=== PATIENT | female | born 1980 | race American Indian/Alaskan Native ===

== ENCOUNTER → 2018-02-14 | Emergency (ER) | payer OTHER ==
[~2018-02-14] VITALS: Ht 160 cm; Wt 79.4 kg
[~2018-02-14] MED LIST: ABILIFY5 MG; ACYCLOVIR400 MG PO; BACLOFEN10 MG PO; BACTRIM DS TAB1 EACH PO; CEFTRIAXONE1 G2 IM; CEPHALEXIN500 MG PO; CRANBERRY250 MG PO; DIAZEPAM2 MG PO; ESTRADIOL1 EAC7 TD; HYDROCODON-ACE1 EA11 PO; HYDROCODON-ACE1 EAC3 PO; IBUPROFEN600 MG PO; IBUPROFEN800 MG PO; KEFLEX500 MG PO; LEVAQUIN500 MG PO; MOTRIN IB200 MG PO; NORCO 5-325 TA1 EACH PO; OXYCODONE-ACET1 EAC3 PO; PENICILLIN V P250 MG PO; PERCOCET 10-321 EACH PO; PERCOCET 5-3251 EACH PO; PERCOCET 7.5-31 EACH PO; TYLENOL325 MG PO; VIVELLE-DOT1 EAC1 TD
--- OUTSIDE RECORDS SUMMARY | ~2018-02-14 | XMS | Clinical Summary ---
Demographics + + + | Address | [address] | | | [place] [address] | + + + | Home Phone | | + + + | Preferred Language | Unknown | + + + | Marital Status | Unknown | + + + | Gnosticist Affiliation | Unknown | + + + | Race | Unknown | + + + | Ethnic Group | Unknown | + + + Author + + + | Author | [facility] | | | and [place] | + + + | Organization | [facility] | | | [...] Providers + +------+ + | Care Medical Claims Examiner Name | Role | Phone | + +------+ + | Johnathon Diaz PA-C | PP | | + +------+ + Allergies Not on File Current Medications Not on file Active Problems Not on file Social History + +-------+ +--------+------+ | Tobacco Use | Types | Packs/Day | Years | Date | | | | | Used | | + +-------+ +--------+------+ | Never Assessed | | | | | + +-------+ +--------+------+ + + + | Sex Assigned at | Date Recorded | | | | + + + | Not on file | | + + + Plan of Treatment + + + + + | Health Maintenance | Due Date | Last Done | Comments | + + + + + | Vaccine: | | | | | Dtap/Tdap/Td (1 - | 9 | | | | Tdap) | | | | + + + + + | CERVICAL CANCER | | | | | SCREENING (PAP EVERY | 1 | | | | 3 YEARS 21-64 ) | | | | + + + + + | Vaccine: Influenza | | | | | (Season Ended) | 8 | | | + + + + + Results Not on filefrom Last 3 Months Insurance + +--------+ +--------+-------+---------+ | Payer | Benefi | Subscriber | Type | Phone | Address | | | t Plan | ID | | | | | | / | | | | | | | Group | | | | | + +--------+ +--------+-------+---------+ | [facility] | IHS | [id number] | Indemn | | | | SERVICE | YELLOW | x | ity | | | | | [place] | | | | | + +--------+ +--------+-------+---------+ + +--------+ +--------+ + + | Guarantor Name | Accoun | Relation to | Date | Phone | Billing Address | | | t Type | Patient | of | | | | | | | | | | + +--------+ +--------+ + + | CHRISTIANO MUNOZ | Person | Self | [birth year] | Home: | [address] | | | [place] | | 1980 | [phone] | [place] | | | [place] | | | 1972 | [phone] | + +--------+ +--------+ + +"
--- OUTSIDE RECORDS SUMMARY | ~2018-02-14 | XMS | Clinical Summary ---
Demographics + + + | Address | [address] | | | [place] [address] | + + + | Home Phone | | + + + | Preferred Language | Unknown | + + + | Marital Status | Single | + + + | Alevism Affiliation | 1041 | + + + | Race | Unknown | + + + | Ethnic Group | Unknown | + + + Author + + + | Author | [facility] | + + + | Organization | [facility] | + + + | Address | [...] + + +---------+ + | Jerry Riggins ECON | Unknown | | + + +---------+ + Care Team Providers + +------+ + | Care Hoop Maker Name | Role | Phone | + [...] | | | | Screening (Pap) | 1 | | | + + + + [...] +------+-------+ + | MEDICAID | [place] | xxxxxxxx | | | [address] | | | N | | | | [place], [place] | | | [place] | | | | [address] | | | 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
--- OUTSIDE RECORDS SUMMARY | ~2018-02-14 | XMS | Clinical Summary ---
Demographics + + + | Address | [address] | | | [place] [address] | + + + | Home Phone | | + + + | Preferred Language | Unknown | + + + | Marital Status | Unknown | + + + | Rastafarian Affiliation | Unknown | + + + | Race | Unknown | + + + | Ethnic Group | Unknown | + + + Author + + + | Author | [facility] | | | and [place] | + + + | Organization | [facility] | | [...] Team Providers + +------+ + | Care Concrete Pouring Supervisor Name | Role | Phone | + [...] | | | + +--------+ +--------+-------+---------+ | [facility] | IHS | [id number] | Indemn [...] | [place] | | | 1972 | [phone] | + +--------+ +--------+ + +"
--- OUTSIDE RECORDS SUMMARY | ~2018-02-14 | XMS | Clinical Summary ---
Demographics + + + | Address | [address] | | | [place] [address] | + + + | Home Phone | | + + + | Preferred Language | Unknown | + + + | Marital Status | Single | + + + | Yarsani Affiliation | 1041 | + + + | Race | Unknown | + + + | Ethnic Group | Unknown | + + + Author + + + | Author | [facility] | + + + | Organization | [facility] | + + + | [...] Team Providers + +------+ + | Care Business Control Manager Name | Role | Phone | + [...] | | [place] | | | | [phone] | | | SHOEMAKING CUTTER | | | | | + +--------+ +------+-------+ + | /[facility] | YELLOW | [phone] | | [...] | | | | | | | [phone] | | | | | | +- | | | | | | | 2031 | | + +--------+ +--------+ + +
== END ==
LOC: ED 18:18
DX: R51 Headache (principal); I10 Essential (primary) hypertension; Z87.891 Personal history of nicotine dependence
CPT/HCPCS: 96374; 96375; 99282; J1200; J1885; J2765; J7030

== ENCOUNTER 2019-08-25 04:25 | Emergency (ER) | payer OTHER ==
[~2019-08-25] VITALS: Ht 160 cm; Wt 79.4 kg
--- OUTSIDE RECORDS SUMMARY | ~2019-08-25 | XMS | Clinical Summary ---
Demographics + + + | Address | [address] | | | [place] [address] | + + + | Home Phone | | + + + | Preferred Language | Unknown | + + + | Marital Status | Unknown | + + + | Confucianism Affiliation | Unknown | + + + | Race | Unknown | + + + | Ethnic Group | Unknown | + + + Author + + + | Author | [facility] | | | and [place] | + + + | Organization | [facility] | | | and [place] | + + + | Address | Unknown | + + + | Phone | Unavailable | + + + Support + + +---------+ + | Name | Relationship | Address | Phone | + + +---------+ + | Justin Paul | ECON | Unknown | | + + +---------+ + Care Team Providers + +------+ + | Care Product Design Specialist Name | Role | Phone | + +------+ + | Johnathon Diaz PA-C | PCP | | + +------+ + Allergies + + + + + + | Active Allergy | Reactions | Severity | Noted | Comments | | | | | Date | | + + + + + + | Adhesive & Tape | Rash | Medium | 09/28/20 | | | | | | 16 | | + + + + + + Medications + + + +---------+------+------+-------+ | Medication | Sig | Dispensed | Refills | Star | End | Statu | | | | | | t | Date | s | | | | | | Date | | | + + + +---------+------+------+-------+ | acetaminophen | Take 325 mg by mouth | | 0 | 11/2 | | Activ | | (TYLENOL) 325 mg | every 6 (six) hours | | | 8/20 | | e | | tablet | as needed for Pain | | | 16 | | | | | (takes every other | | | | | | | | day for migranes). | | | | | | + + + +---------+------+------+-------+ Active Problems + + + | Problem | Noted Date | + + + | Recurrent UTI | 04/29/2017 | + + + | Hypokalemia | 09/29/2016 | + + + | Flank pain, acute | 09/28/2016 | + + + | Acute pyelonephritis without lesion of renal medullary necrosis | 09/28/2016 | + + + Family History + + +------+ + | Medical History | Relation | Name | Comments | + + +------+ + | Alcohol abuse | Father | | | + + +------+ + | Diabetes, NIDDM | Father | | | + + +------+ + | High cholesterol | Father | | | + + +------+ + | Cancer | Maternal | | | | | Grandmoth | | | | | er | | | + + +------+ + | Coronary artery | Maternal | | | | disease | Grandmoth | | | | | er | | | + + +------+ + | Alcohol abuse | Mother | | | + + +------+ + + +------+--------+ + | Relation | Name | Status | Comments | + +------+--------+ + | Father | | | | + +------+--------+ + | Maternal Grandmother | | | | + +------+--------+ + | Mother | | | | + +------+--------+ + Social History + +-------+ +--------+------+ | Tobacco Use | Types | Packs/Day | Years | Date | | | | | Used | | + +-------+ +--------+------+ | Former Smoker | | 0.25 | | | + +-------+ +--------+------+ + + + | Sex Assigned at | Date Recorded | | | | + + + | Not on file | | + + + + + + + | Job Start Date | Occupation | Industry | + + + + | Not on file | Not on file | Not on file | + + + + + + + + | Travel History | Travel Start | Travel End | + + + + + + | No recent travel history available. | + + Last Filed Vital Signs + + + + | Vital Sign | Reading | Time Taken | + + + + | Blood Pressure | 156/114 | 10/22/2016 1445 PST | + + + + | Pulse | 98 | 05/20/2017 1420 PDT | + + + + | Temperature | 36.9 C (98.4 F) | 10/22/20161444 PST | + + + + | Respiratory Rate | 17 | 10/22/20165 PST | + + + + | Oxygen Saturation | - | - | + + + + | Inhaled Oxygen | - | - | | Concentration | | | + + + + | Weight | 66 kg (145 lb 8 oz) | 05/20/20171419 PDT | + + + + | Height | 160 cm (5' 3") | 05/20/20171419 PDT | + + + + | Body Mass Index | 25.77 | 05/20/20171419 PDT | + + + + Plan of Treatment + + + + + | Health Maintenance | Due Date | Last Done | Comments | + + + + + | Vaccine: | | | | | Dtap/Tdap/Td (1 - | 9 | | | | Tdap) | | | | + + + + + | Cervical Cancer | | | | | Screening (Pap) | 0 | | | + + + + + | Vaccine: Influenza | | | | | (#1) | 9 | | | + + + + + Results Not on filefrom Last 3 Months Insurance + +--------+ +--------+-------+---------+--------+ | Payer | Benefi | Subscriber | Effect | Phone | Address | Type | | | t Plan | ID | angeline | | | | | | / | | Dates | | | | | | Group | | | | | | + +--------+ +--------+-------+---------+--------+ | [facility] | IHS | [phone] | | | | Indemn | | SERVICE | YELLOW | 0 | [phone] | | | ity | | | [place] | | esent | | | | + +--------+ +--------+-------+---------+--------+ + +--------+ +--------+ + + | Guarantor Name | Accoun | Relation to | Date | Phone | Billing Address | | | t Type | Patient | of | | | | | | | | | | + +--------+ +--------+ + + | Karen Munoz | Person | Self | [birth year] | | [address] | | | al/Yann | | 1980 | [phone] | [place] | | | [place] | | | [address] (Home) | [phone] | + +--------+ +--------+ + + Advance Directives Patient has advance care planning documents on file. For more information, please contact:[facility] [place] [address]
--- OUTSIDE RECORDS SUMMARY | ~2019-08-25 | XMS | Clinical Summary ---
Demographics + + + | Address | [address] | | | [place] [address] | + + + | Home Phone | | + + + | Preferred Language | Unknown | + + + | Marital Status | Unknown | + + + | Buddhist Affiliation | Unknown | + + + | Race | Unknown | + + + | Ethnic Group | Unknown | + + + Author + + + | Author | [facility] | | | and [place] | + + + | Organization | [facility] | | | and [...] Team Providers + +------+ + | Care Medical Receptionist Biller Name | Role | Phone | + [...] | | | + +--------+ +--------+-------+---------+--------+ | [facility] | IHS | [phone] | | [...] [phone] | [place] | | | ninaf | | | 2 (Home) | [phone] | + +--------+ +--------+ + + Advance Directives Patient has advance care planning documents on file. For more information, please contact:[facility] [place] [address]
--- OUTSIDE RECORDS SUMMARY | ~2019-08-25 | XMS | Clinical Summary ---
Demographics + + + | Address | [address] | | | [place] [address] | + + + | Home Phone | | + + + | Preferred Language | Unknown | + + + | Marital Status | Single | + + + | Shinto Affiliation | 1041 | + + + | Race | Unknown | + + + | Ethnic Group | Unknown | + + + Author + + + | Author | [facility] (Historical as of | | | 06-17-19) | + + + | Organization | [facility] (Historical as of | | | 06-17-19) | + + + | Address | Unknown | + + + | Phone | Unavailable | + + + Support + + +---------+ + | Name | Relationship | Address | Phone | + + +---------+ + | Charles Paul | ECON | Unknown | | + + +---------+ + | Erika Worrell | ECON | Unknown | | + + +---------+ + | Jerry Riggins | ECON | Unknown | | + + +---------+ + Care Team Providers + +------+ + | Care Cigar Packer And Sorter Name | Role | Phone | + +------+ + | Johnathon Diaz | PP | | + +------+ + Allergies + + + + + + | Active Allergy | Reactions | Severity | Noted | Comments | | | | | Date | | + + + + + + | Adhesive Tape | Rash | Medium | 09/28/20 | | | | | | 16 | | + + + + + + Current Medications + + +-------+---------+------+------+-------+ | Prescription | Sig. | Disp. | Refills | Star | End | Statu | | | | | | t | Date | s | | | | | | Date | | | + + +-------+---------+------+------+-------+ | acetaminophen | Take 325 mg by mouth | | | | | Activ | | (TYLENOL) 325 MG | every 6 (six) hours | | | | | e | | tablet | as needed for Pain | | | | | | | | (takes every other | | | | | | | | day for migranes). | | | | | | + + +-------+---------+------+------+-------+ + + +-------+ +------+------+-------+ | Hospital, Clinic, or | Ordered | Route | Frequency | Star | End | Statu | | Other Facility | Dose | | | t | Date | s | | Administered | | | | Date | | | | Medication | | | | | | | + + +-------+ +------+------+-------+ | lidocaine | | TP | Once | 07/2 | | Activ | | (XYLOCAINE) 2 % | | | | 0/20 | | e | | gelIndications: | | | | 17 | | | | Recurrent UTI | | | | | | | + + +-------+ +------+------+-------+ | sodium chloride | 500 mL | IR | Once | 07/2 | | Activ | | (IR) 0.9 % | | | | 0/20 | | e | | irrigation 500 | | | | 17 | | | | mLIndications: | | | | | | | | Recurrent UTI | | | | | | | + + +-------+ +------+------+-------+ Active Problems + + + | Problem [...] | | + + +------+ + | Diabetes type II | Father | | | + + +------+ + | High cholesterol | Father | | | + + +------+ + | Cancer | Maternal | | | | | Grandmoth | | | | | er | | | + + +------+ + | Coronary art dis | Maternal | | | | | [...] + +------+--------+ + Social History + +-------+ +--------+ + | Tobacco Use | Types | Packs/Day | Years | Date | | | | | Used | | + +-------+ +--------+ + | Former Smoker | | 0.25 | 2 | Quit: 08/28/2016 | + +-------+ +--------+ + + +---+---+---+ | Smokeless Tobacco: | | | | | Never Used | | | | + +---+---+---+ + + | Tobacco Cessation: Counseling Given: Yes | + + + + +---------+ + | Alcohol Use | Drinks/We | oz/Week | Comments | | | ek | | | + + +---------+ + | No | | | use to drink 4 drinks per day quit Oct 31 | + + +---------+ + + + + | Sex Assigned at | Date Recorded | | | | + + + | Not on file | | + + + Last Filed Vital Signs + + + + | Vital Sign | Reading | Time Taken | + + + + | Blood Pressure | 156/114 | 10/22/2016 2:41 PM PST | + + + + | Pulse | 98 | 05/20/2017 2:19 PM PDT | + + + + | Temperature | 36.9 C (98.4 F) | 10/22/2016 2:41 PM PST | + + + + | Respiratory Rate | 17 | 10/22/2016 2:41 PM PST | + + + + | Oxygen Saturation | 100% | 05/20/2017 2:19 PM PDT | + + + + | Inhaled Oxygen | - | - | | Concentration | | | + + + + | Weight | 66 kg (145 lb 8 oz) | 05/20/2017 2:19 PM PDT | + + + + | Height | 160 cm (5' 3") | 05/20/2017 2:19 PM PDT | + + + + | Body Mass Index | 25.77 | 05/20/2017 2:19 PM PDT | + + + + Plan [...] filefrom Last 3 Months Insurance + +--------+ +------+-------+ + | Payer | Benefi | Subscriber | Type | Phone | Address | | | t Plan | ID | | | | | | / | | | | | | | Group | | | | | + +--------+ +------+-------+ + | MEDICAID | [place] | [id number] | | | [address] | | | N | | | | [place], [place] | | | [place] | | | | [phone] | | | 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
--- OUTSIDE RECORDS SUMMARY | ~2019-08-25 | XMS | Clinical Summary ---
Demographics + + + | Address | [address] | | | [place] [address] | + + + | Home Phone | | + + + | Preferred Language | Unknown | + + + | Marital Status | Single | + + + | Pentecostalism Affiliation | 1041 | + + + | Race | Unknown | + + + | Ethnic Group | Unknown | + + + Author + + + | Author | [facility] (Historical as of | | | 06-17-19) | + + + | Organization | 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
[2019-08-25] MEDS ORDERED: ALLEGRA ALLERGY60 MG PO (04:38)
== END 2019-08-25 07:54 | disposition home or self-care (01) ==
LOC: ED 04:25
DX: R10.31 Right lower quadrant pain (principal); I10 Essential (primary) hypertension; Z87.891 Personal history of nicotine dependence; Z79.899 Other long term (current) drug therapy
CPT/HCPCS: 74177; 80053; 81001; 83690; 84703; 85025; 99284-25; J1885; J2405; J7030; Q9967

== ENCOUNTER 2021-01-11 10:05 | Emergency (ER) | payer OTHER ==
[~2021-01-11] VITALS: Ht 160 cm; Wt 76.6 kg
[~2021-01-11 10:05] MED LIST changes: +ALLEGRA ALLERGY60 MG PO
[2021-01-11] MEDS ORDERED: FLONASE ALLERG9.9 ML NAS (10:51)
[2021-01-11] MEDS ORDERED: AMOXICILLIN500 MG PO (10:51)
== END 2021-01-11 11:06 | disposition home or self-care (01) ==
LOC: ED 10:05
DX: J32.9 Chronic sinusitis, unspecified (principal); I10 Essential (primary) hypertension; Z87.891 Personal history of nicotine dependence
CPT/HCPCS: 99283

== ENCOUNTER 2022-12-10 12:19 | Emergency (ER) | payer OTHER ==
[~2022-12-10] VITALS: Ht 160 cm; Wt 82.7 kg
[~2022-12-10 12:19] MED LIST changes: +AMOXICILLIN500 MG PO; +FLONASE ALLERG9.9 ML NAS
[2022-12-10] MEDS ORDERED: PREDNISONE20 MG PO (15:47)
== END 2022-12-10 15:59 | disposition home or self-care (01) ==
LOC: ED 12:19
DX: M25.511 Pain in right shoulder (principal); I10 Essential (primary) hypertension; Z87.891 Personal history of nicotine dependence
CPT/HCPCS: 73030; 99283-25; A9270; J7512

== ENCOUNTER 2023-08-10 20:02 | Emergency (ER) | payer OTHER ==
[~2023-08-10] VITALS: Ht 160 cm; Wt 81.4 kg
[~2023-08-10 20:02] MED LIST changes: +PREDNISONE20 MG PO
[2023-08-11] MEDS ORDERED: CYCLOBENZAPRINE10 MG PO (00:06)
[2023-08-11] MEDS ORDERED: MELOXICAM15 MG PO (00:06)
[2023-08-11 00:15] VITALS: BP 122/85
== END 2023-08-11 00:16 | disposition home or self-care (01) ==
LOC: ED 20:02
DX: R91.1 Solitary pulmonary nodule (principal); R07.89 Other chest pain; I10 Essential (primary) hypertension; X50.0XXA Overexertion from strenuous movement or load, initial encounter; Z79.52 Long term (current) use of systemic steroids; Z87.891 Personal history of nicotine dependence
CPT/HCPCS: 71250; J1885; J3360

== ENCOUNTER 2025-08-28 12:59 | Emergency (ER) | payer OTHER ==
[~2025-08-28] VITALS: Ht 160 cm; Wt 88.0 kg
[~2025-08-28 12:59] MED LIST changes: +CYCLOBENZAPRINE10 MG PO; +MELOXICAM15 MG PO
[2025-08-28] MEDS ORDERED: NITROGLYCERIN 0.4 MG SUBL SL PRN (13:15)
[2025-08-28] MEDS ORDERED: ZESTRIL10 MG PO (13:15)
[2025-08-28] MEDS ORDERED: ASPIRIN 81 MG CHEW PO ONE (13:15)
[2025-08-28] MEDS ORDERED: HUMIRA40 MG/0.1 SUB-Q (13:16)
[2025-08-28 13:35] LABS: BASOPHILS 0.4 % (0.1-1.2); EOSINOPHILS 1.7 % (0.7-5.8); LYMPHOCYTES 16.0 % (19.3-51.7); MCH 27.8 PG (25.6-32.2); MCHC 32.3 g/dL (32.2-35.5); MCV 86.0 fL (79.4-94.8); MONOCYTES 7.1 % (4.7-12.5); NEUTROPHILS 74.5 % (34.0-71.1); RBC 4.57 M/uL (3.93-5.22)
[2025-08-28 13:56] LABS: ALT (SGPT) 54.0 U/L (14-59); AST (SGOT) 35.0 U/L (15-37); GLOMERULAR FILTRATION RATE,EST 111.0 mL/min (>60); PROTEIN, TOTAL 7.9 g/dL (6.4-8.2); UREA NITROGEN 11.0 mg/dL (7-18)
[2025-08-28] MEDS ORDERED: KETOROLAC TROMETHAMINE 15 MG/ML VIAL IV ONE (14:30)
[2025-08-28] MEDS ORDERED: KETOROLAC TROMETHAMINE 15 MG/ML VIAL IM ONE (14:45)
[2025-08-28 17:24] VITALS: BP 135/82
--- NOTE | 2025-08-29 07:41 | EKG ---
[facility] [address] [facility] [place], [place] [address] Signed Normal sinus rhythm Possible Left atrial enlargement Minimal voltage criteria for LVH, may be normal variant ( R in aVL ) Borderline ECG No previous ECGs available Confirmed by Lisa Goss DO ([id number]) on 08/29/2025 7:41:04 AM Electronically Signed By: LISA GOSS DO 08/29/25 0741 PATIENT NAME: JENKINSCHRISTIANO Electrocardiogram DATE OF : 80 PHYSICIAN: LISA GOSS DO REPORT #: [id number] REPORT IS CONFIDENTIAL AND NOT TO BE RELEASED WITHOUT AUTHORIZATION
== END 2025-08-28 17:19 | disposition home or self-care (01) ==
LOC: ED 12:59
PROVIDERS: Emergency Medicine
DX: R07.89 Other chest pain (principal); I10 Essential (primary) hypertension; Z87.891 Personal history of nicotine dependence
CPT/HCPCS: 36415; 71045; 71260; 80053; 83735; 84484; 85025; 85379; 93005; 93010; 96372; 96374; 99285-25; A9270; J1885; Q9967